=== PATIENT | male | born 1995 | race African-American/Black ===

== ENCOUNTER 2016-10-30 20:54 | Emergency (ER) | payer OTHER ==
[~2016-10-30] VITALS: Ht 172.7 cm; Wt 96.4 kg
[~2016-10-30 20:54] MED LIST: BENADRYL25 M2 PO; FLONASEALLERGY NS; PROAIR HFA0.09 MG/AC IH; SINGULAIR 110 MG/TAB PO
[2016-10-30 21:04] VITALS: TEMP 97.9
[2016-10-30] MEDS ORDERED: MOTRIN 800800 MG/TAB PO (21:48)
[2016-10-30 22:16] VITALS: BP 120/70; PULSE 58
== END 2016-10-30 22:10 | disposition home or self-care (01) ==
LOC: COL.ER 20:54
DX: M94.0 Chondrocostal junction syndrome [Tietze] (principal)

== ENCOUNTER 2016-11-10 10:57 | Emergency (ER) | payer OTHER ==
[~2016-11-10] VITALS: Ht 172.7 cm; Wt 95.5 kg
[~2016-11-10 10:57] MED LIST changes: +MOTRIN 800800 MG/TAB PO
[2016-11-10 11:40] LABS: INFLUENZA B NEGATIVE
[2016-11-10] MEDS ORDERED: PROAIR HFA0.09 MG/AC IH (12:26)
[2016-11-10 12:29] VITALS: BP 130/86; PULSE 66; TEMP 98.4
== END 2016-11-10 12:30 | disposition home or self-care (01) ==
LOC: COL.ER 10:57
PROVIDERS: Physician Assistant
DX: B34.9 Viral infection, unspecified (principal); R09.89 Other specified symptoms and signs involving the circulatory and respiratory systems; J45.909 Unspecified asthma, uncomplicated

== ENCOUNTER 2016-11-30 21:40 | Emergency (ER) | payer OTHER ==
[~2016-11-30] VITALS: Ht 172.7 cm; Wt 97.7 kg
[2016-11-30 21:42] VITALS: TEMP 98.1
[2016-11-30 22:14] LABS: BASO # 0.1 (0.0-0.2); BASO % 1.1 % (0.0-2.0); EOS # 0.4 (0.0-0.7); EOS % 4.5 % (0-4.0); GRAN # 4.9 (1.4-6.5); HEMATOCRIT 39.4 % (42.0-52.0); LYMPH # 2.3 (1.2-3.4); LYMPH % 27.7 % (20.0-51.0); MEAN CELL VOLUME 87 fl (80.0-100.0); MEAN CORPUSCULAR HEMOGLOBIN 29 pg (27.0-31.0); MEAN CORPUSCULAR HGB CONC 33 g/dl (33.0-37.0); MEAN PLATELET VOLUME 10.4 fl (7.4-10.4); MONO # 0.6 (0.1-0.6); MONO % 7.5 % (1.7-9.3); PLATELET COUNT 218 K/mm3 (130-400); RED BLOOD COUNT 4.53 M/mm3 (4.20-5.60); REDCELL DISTRIBUTION WIDTH-CV 13.3 % (11.5-14.5); WHITE BLOOD COUNT 8.3 K/mm3 (4.8-10.8)
[2016-11-30 22:23] LABS: ADJUSTED CALCIUM 9.3 mg/dL (8.4-10.2); ALBUMIN 4.2 gm/dL (3.5-5.0); BILIRUBIN,TOTAL 2.1 mg/dL (0.0-1.0); CALCIUM 9.5 mg/dL (8.4-10.2); CREATININE, serum 1.79 mg/dL (0.66-1.25); POTASSIUM 3.8 mmol/L (3.4-5.0); TOTAL PROTEIN 7.5 gm/dL (6.4-8.2)
[2016-11-30 22:37] LABS: PH 6 (5-8); SQUAMOUS EPITHELIAL 0-2 /hpf; URINE APPEARANCE Clear; URINE BACTERIA None Seen /hpf; URINE BILIRUBIN Negative (NEGATIVE); URINE BLOOD Negative (NEGATIVE); URINE COLOR Yellow; URINE GLUCOSE Negative (NEGATIVE); URINE KETONE Negative (NEGATIVE); URINE RBC 0-2 /hpf; URINE UROBILINOGEN Negative (NEGATIVE); URINE WBC 0-2 /hpf
[2016-11-30 23:59] VITALS: BP 135/82; PULSE 59
== END 2016-12-01 | disposition home or self-care (01) ==
LOC: COL.ER 21:40
PROVIDERS: Emergency Medicine
DX: E86.0 Dehydration (principal); R11.10 Vomiting, unspecified
CPT/HCPCS: J2405; J7030

== ENCOUNTER → 2016-12-20 | Outpatient (CLI) | payer OTHER | LOC: COL.RAD 16:30 | DX: D48.7 Neoplasm of uncertain behavior of other specified sites (principal); N17.8 Other acute kidney failure ==

== ENCOUNTER 2016-12-26 22:27 | Emergency (ER) | payer OTHER ==
[~2016-12-26] VITALS: Ht 172.7 cm; Wt 95.5 kg
[2016-12-26 22:30] VITALS: BP 145/73; TEMP 97.7
[2016-12-26 23:09] LABS: BASO # 0.1 (0.0-0.2); BASO % 0.9 % (0.0-2.0); EOS # 0.6 (0.0-0.7); EOS % 7.5 % (0-4.0); GRAN # 3.4 (1.4-6.5); GRAN % 45.7 % (42.2-75.2); HEMATOCRIT 39.3 % (42.0-52.0); LYMPH % 40.6 % (20.0-51.0); MEAN CELL VOLUME 88 fl (80.0-100.0); MEAN CORPUSCULAR HEMOGLOBIN 29 pg (27.0-31.0); MEAN CORPUSCULAR HGB CONC 33 g/dl (33.0-37.0); MEAN PLATELET VOLUME 10.3 fl (7.4-10.4); MONO # 0.4 (0.1-0.6); MONO % 4.9 % (1.7-9.3); PLATELET COUNT 248 K/mm3 (130-400); RED BLOOD COUNT 4.45 M/mm3 (4.20-5.60); REDCELL DISTRIBUTION WIDTH-CV 13.8 % (11.5-14.5); WHITE BLOOD COUNT 7.5 K/mm3 (4.8-10.8)
[2016-12-26 23:10] LABS: PH 6 (5-8); SQUAMOUS EPITHELIAL None Seen /hpf; URINE APPEARANCE Clear; URINE BACTERIA None Seen /hpf; URINE BILIRUBIN Negative (NEGATIVE); URINE BLOOD Negative (NEGATIVE); URINE COLOR Straw; URINE GLUCOSE Negative (NEGATIVE); URINE KETONE Negative (NEGATIVE); URINE RBC 0-2 /hpf; URINE UROBILINOGEN Negative (NEGATIVE); URINE WBC 0-2 /hpf
[2016-12-26 23:20] LABS: ADJUSTED CALCIUM 9.1 mg/dL (8.4-10.2); ALANINE AMINOTRANSFERASE 36 U/L (21-72); ALBUMIN 4.2 gm/dL (3.5-5.0); ALKALINE PHOSPHATASE 79 U/L (50-136); ANION GAP 12 mmol/L (7-16); BILIRUBIN,TOTAL 1.2 mg/dL (0.0-1.0); BLOOD UREA NITROGEN 19 mg/dL (9-20); C-REACTIVE PROTEIN < 0.5 mg/dL (0.0-0.9); CALCIUM 9.3 mg/dL (8.4-10.2); CARBON DIOXIDE 22 mmol/L (22-30); CHLORIDE 102 mmol/L (98-107); CREATININE, serum 1.46 mg/dL (0.66-1.25); GLUCOSE 91 mg/dL (74-106); POTASSIUM 3.9 mmol/L (3.4-5.0); SODIUM 135 mmol/L (137-145)
[2016-12-26 23:44] VITALS: PULSE 58
== END 2016-12-26 23:44 | disposition home or self-care (01) ==
LOC: COL.ER 22:27
PROVIDERS: Physician Assistant
DX: R10.84 Generalized abdominal pain (principal); N28.9 Disorder of kidney and ureter, unspecified; J45.909 Unspecified asthma, uncomplicated; F17.200 Nicotine dependence, unspecified, uncomplicated

== ENCOUNTER → 2017-01-02 | Outpatient (CLI) | payer OTHER | LOC: COL.RAD 09:29 | DX: Z13.89 Encounter for screening for other disorder (principal) | CPT/HCPCS: A9562 ==

== ENCOUNTER 2017-08-20 07:53 | Emergency (ER) | payer OTHER ==
[~2017-08-20] VITALS: Ht 172.7 cm; Wt 97.7 kg
[2017-08-20 08:00] VITALS: BP 119/74; TEMP 98.1
[2017-08-20 08:46] LABS: STREP SCREEN NEGATIVE
[2017-08-20 08:50] LABS: INFLUENZA A NEGATIVE; INFLUENZA B NEGATIVE
[2017-08-20 09:23] VITALS: PULSE 66
== END 2017-08-20 09:23 | disposition home or self-care (01) ==
LOC: COL.ER 07:53
PROVIDERS: Family Medicine
DX: J02.9 Acute pharyngitis, unspecified (principal); J40 Bronchitis, not specified as acute or chronic

== ENCOUNTER 2018-02-10 12:17 | Emergency (ER) | payer OTHER ==
[~2018-02-10] VITALS: Ht 175.3 cm; Wt 99.0 kg
[2018-02-10 12:21] VITALS: TEMP 97
[2018-02-10 12:55] LABS: COLLECTION METHOD CLEAN CATCH
[2018-02-10 13:02] LABS: BASO % 0.3 % (0.0-2.0); EOS # 0.2 (0.0-0.7); EOS % 3.1 % (0-4.0); GRAN # 5.1 (1.4-6.5); GRAN % 73.2 % (42.2-75.2); HEMATOCRIT 47.3 % (42.0-52.0); HEMOGLOBIN 15.9 g/dl (13.5-18.0); LYMPH # 1.2 (1.2-3.4); LYMPH % 17.6 % (20.0-51.0); MEAN CELL VOLUME 85 fl (80.0-100.0); MEAN CORPUSCULAR HEMOGLOBIN 29 pg (27.0-31.0); MEAN CORPUSCULAR HGB CONC 34 g/dl (33.0-37.0); MEAN PLATELET VOLUME 10.3 fl (7.4-10.4); MONO # 0.4 (0.1-0.6); MONO % 5.4 % (1.7-9.3); PLATELET COUNT 243 K/mm3 (130-400); RED BLOOD COUNT 5.57 M/mm3 (4.20-5.60); REDCELL DISTRIBUTION WIDTH-CV 13.2 % (11.5-14.5)
[2018-02-10 13:06] LABS: MUCOUS Present /lpf; PH 7 (5-8); SQUAMOUS EPITHELIAL None Seen /hpf; URINE APPEARANCE Clear; URINE BACTERIA None Seen /hpf; URINE BILIRUBIN Negative (NEGATIVE); URINE BLOOD Negative (NEGATIVE); URINE COLOR Yellow; URINE GLUCOSE Negative (NEGATIVE); URINE KETONE Negative (NEGATIVE); URINE LEUKOCYTE ESTERASE Negative (NEGATIVE); URINE NITRATE Negative (NEGATIVE); URINE PROTEIN(semi-quant) 1+ (NEGATIVE); URINE RBC 0-2 /hpf
[2018-02-10 13:15] LABS: ALANINE AMINOTRANSFERASE 29 U/L (21-72); ALBUMIN 4.2 gm/dL (3.5-5.0); ALKALINE PHOSPHATASE 69 U/L (50-136); ANION GAP 14 mmol/L (7-16); AST,SGOT 29 U/L (15-37); BLOOD UREA NITROGEN 21 mg/dL (9-20); CALCIUM 9.8 mg/dL (8.4-10.2); CARBON DIOXIDE 26 mmol/L (22-30); CHLORIDE 101 mmol/L (98-107); CREATININE, serum 1.54 mg/dL (0.66-1.25); GLUCOSE 98 mg/dL (74-106); LIPASE 39 U/L (23-300); POTASSIUM 3.9 mmol/L (3.4-5.0); SODIUM 142 mmol/L (137-145); TOTAL PROTEIN 8.2 gm/dL (6.4-8.2)
[2018-02-10 13:21] LABS: C-REACTIVE PROTEIN < 0.5 mg/dL (0.0-0.9)
[2018-02-10 14:33] VITALS: BP 130/90; PULSE 62
[2018-02-10] MEDS ORDERED: BREO IH (16:27)
[2018-02-10] MEDS ORDERED: ZOFRAN 4MG T4 MG/TAB PO (18:17)
== END 2018-02-10 14:34 | disposition home or self-care (01) ==
LOC: COL.ER 12:17
PROVIDERS: Emergency Medicine
DX: R11.10 Vomiting, unspecified (principal); R19.7 Diarrhea, unspecified; R79.89 Other specified abnormal findings of blood chemistry; J45.909 Unspecified asthma, uncomplicated
CPT/HCPCS: J2405; J7030

== ENCOUNTER 2018-02-10 16:28 | Emergency (ER) | payer OTHER ==
[~2018-02-10] VITALS: Ht 175.3 cm; Wt 98.6 kg
[~2018-02-10 16:28] MED LIST changes: +BREO IH
[2018-02-10 17:03] LABS: BASO % 0.2 % (0.0-2.0); EOS # 0.1 (0.0-0.7); EOS % 0.6 % (0-4.0); GRAN # 7.1 (1.4-6.5); HEMATOCRIT 43.7 % (42.0-52.0); HEMOGLOBIN 15.1 g/dl (13.5-18.0); LYMPH % 11.3 % (20.0-51.0); MEAN CELL VOLUME 84 fl (80.0-100.0); MEAN CORPUSCULAR HEMOGLOBIN 29 pg (27.0-31.0); MEAN CORPUSCULAR HGB CONC 35 g/dl (33.0-37.0); MEAN PLATELET VOLUME 10.5 fl (7.4-10.4); MONO # 0.5 (0.1-0.6); MONO % 5.4 % (1.7-9.3); PLATELET COUNT 250 K/mm3 (130-400); RED BLOOD COUNT 5.19 M/mm3 (4.20-5.60); REDCELL DISTRIBUTION WIDTH-CV 13.2 % (11.5-14.5)
[2018-02-10 17:31] VITALS: BP 134/84; TEMP 97.7
[2018-02-10 17:34] LABS: ALANINE AMINOTRANSFERASE 28 U/L (21-72); ALKALINE PHOSPHATASE 61 U/L (50-136); ANION GAP 17 mmol/L (7-16); AST,SGOT 52 U/L (15-37); BILIRUBIN,TOTAL 1.4 mg/dL (0.0-1.0); BLOOD UREA NITROGEN 18 mg/dL (9-20); CALCIUM 9.4 mg/dL (8.4-10.2); CARBON DIOXIDE 16 mmol/L (22-30); CHLORIDE 107 mmol/L (98-107); CREATININE, serum 1.47 mg/dL (0.66-1.25); GLUCOSE 122 mg/dL (74-106); POTASSIUM 3.4 mmol/L (3.4-5.0); SODIUM 140 mmol/L (137-145); TOTAL PROTEIN 7.6 gm/dL (6.4-8.2)
[2018-02-10 17:37] LABS: C-REACTIVE PROTEIN < 0.5 mg/dL (0.0-0.9)
[2018-02-10] MEDS ORDERED: ZOFRAN 4MG T4 MG/TAB PO (18:17)
[2018-02-10 18:33] VITALS: PULSE 75
== END 2018-02-10 18:35 | disposition home or self-care (01) ==
LOC: COL.ER 16:28
PROVIDERS: Emergency Medicine
DX: R11.2 Nausea with vomiting, unspecified (principal); R19.7 Diarrhea, unspecified; R06.4 Hyperventilation
CPT/HCPCS: J2060; J7030

== ENCOUNTER 2019-06-26 09:32 | Emergency (ER) | payer OTHER ==
[~2019-06-26] VITALS: Ht 172.7 cm; Wt 90.9 kg
[~2019-06-26 09:32] MED LIST changes: +ZOFRAN 4MG T4 MG/TAB PO
[2019-06-26 09:35] VITALS: BP 108/72; TEMP 98.3
[2019-06-26 10:27] LABS: ALBUMIN 4.6 gm/dL (3.5-5.0); BILIRUBIN,TOTAL 1.1 mg/dL (0.0-1.0); CALCIUM 9.5 mg/dL (8.4-10.2); CREATININE, serum 1.35 (0.66-1.25); POTASSIUM 3.8 mmol/L (3.4-5.0); TOTAL PROTEIN 7.9 gm/dL (6.4-8.2)
[2019-06-26] MEDS ORDERED: ZOFRAN ODT4 MG PO (10:52)
[2019-06-26 11:22] VITALS: PULSE 56
== END 2019-06-26 11:23 | disposition home or self-care (01) ==
LOC: COL.ER 09:32
PROVIDERS: Physician Assistant
DX: E86.0 Dehydration (principal); R11.2 Nausea with vomiting, unspecified; Z79.51 Long term (current) use of inhaled steroids; Z72.89 Other problems related to lifestyle
CPT/HCPCS: J2405